=== PATIENT | female | born 1970 | race African-American/Black ===

== ENCOUNTER 2018-12-31 15:46 | Emergency (ER) | payer MEDICARE, MEDICAID ==
[~2018-12-31] VITALS: Ht 165.1 cm; Wt 72.6 kg
[~2018-12-31 15:46] MED LIST: GABA-689 PO; LURA40TA PO
[2018-12-31 16:07] LABS: BILIRUBIN,URINE NEGATIVE (NEG); CLARITY,URINE CLEAR; COLOR,URINE YELLOW; NITRITE,URINE NEGATIVE (NEG); PH,URINE 6.5; PROTEIN,URINE NEGATIVE (NEG-TRACE); UROBILINOGEN,URINE 0.2 mg/dL (0.2 mg/dL)
[2018-12-31 16:11] LABS: BARBITURATES NEG (NEG); BENZODIAZEPINES NEG (NEG); CANNABINOIDS POS (NEG); COCAINE NEG (NEG); METHADONE NEG (NEG); OPIATES NEG (NEG); PHENCYCLIDINE POS (NEG)
[2018-12-31 16:12] LABS: AMPHETAMINE/METHAMPHETAMINE NEG (NEG)
--- NOTE | 2018-12-31 16:12 | PHYS DOC ---
Past Medical History Past Medical History: Arthritis, Bipolar, Diabetes-Type II, Hypertension, Schizophrenia, Other Additional Past Medical Histor: neurontin, paranoid schizophrenia (LEWIS WALL APRN) Past Surgical History: Hysterectomy, Tubal ligation, Other Additional Past Surgical Histo: gall stones removed (LEWIS WALL APRN) Alcohol Use: Occasionally Drug Use: Cocaine, Marijuana (LEWIS WALL APRN) Attending Signature I have participated in the care of this patient and I have reviewed and agree with all pertinent clinical information above including history, exam, and recommendations. (RACHEL DANIELS MD) Adult General Chief Complaint Chief Complaint: SUICDAL IDEATION HPI HPI Patient is a 48 year old female with history of bipolar, schizophrenia, diabetes type 2, hypertension who presents to the ED today to be evaluated for suicidal or homicidal ideations. Patient reports she has not been taking her psych medicines for 9 months because she believes somebody is trying to poison her through the medicines. She is complaining of generalized pain throughout her body. She is very tearful. She states she has suicidal thoughts including killing herself by self-mutilation using knives she has at home. She also reports she wishes to kill her 3 sisters. She reports she will use the same kn [place] to kill her sisters. She was placed on 1:1 on arrival to the ED (LEWIS WALL APRN) Review of Systems Review of Systems Constitutional: Reports pain throughout her body. Denies fever or chills [] Eyes: Denies change in visual acuity, redness, or eye pain [] HENT: Denies nasal congestion or sore throat [] Respiratory: Denies cough or shortness of breath [] Cardiovascular: No additional information not addressed in HPI [] GI: Denies abdominal pain, nausea, vomiting, bloody stools or diarrhea [] : Denies dysuria or hematuria [] Musculoskeletal: Denies back pain or joint pain [] Integument: Denies rash or skin lesions [] Neurologic: Denies headache, focal weakness or sensory changes [] Psych: Reports suicidal and homicidal ideations All other systems were reviewed and found to be within normal limits, except as documented in this note. (LEWIS WALL APRN) Current Medications Current Medications Current Medications Medications (Trade) Dose Ordered Sig/Hero Start Time Stop Time Status Last Admin Dose Admin Acetaminophen (Tylenol) 1,000 mg 1X ONCE 01/01/19 01:00 01/01/19 01:01 DC 01/01/19 00:25 1,000 MG Clonidine HCl (Catapres) 0.2 mg 1X ONCE 12/31/18 21:30 12/31/18 21:31 DC 12/31/18 21:21 0.2 MG Potassium Chloride (Klor-Con) 40 meq 1X ONCE 12/31/18 21:30 12/31/18 21:31 DC 12/31/18 21:21 40 MEQ (RACHEL DANIELS MD) Allergies Allergies Allergies Coded Allergies Type Severity Reaction Last Updated Verified No Known Drug Allergies 03/25/13 No (RACHEL DANIELS MD) Physical Exam Physical Exam Constitutional: Well developed, well nourished, no acute distress, non-toxic appearance. [] HENT: Normocephalic, atraumatic, bilateral external ears normal, oropharynx moist, no oral exudates, nose normal. [] Eyes: PERRLA, EOMI, conjunctiva normal, no discharge. [] Neck: Normal range of motion, no tenderness, supple, no stridor. [] Cardiovascular:Heart rate regular rhythm, no murmur [] Lungs & Thorax: Bilateral breath sounds clear to auscultation [] Abdomen: Bowel sounds normal, soft, no tenderness, no masses, no pulsatile masses. [] Skin: Warm, dry, no erythema, no rash. [] Back: No tenderness, no CVA tenderness. [] Extremities: No tenderness, no cyanosis, no clubbing, ROM intact, no edema. [] Neurologic: Alert and oriented X 3, normal motor function, normal sensory function, no focal deficits noted. [] Psychologic: flat affect, appears sad, tearfull, talkative. (HONGUNGALEWIS APRN) Current Patient Data Vital Signs Vital Signs Date Time Temp Pulse Resp B/P (MAP) Pulse Ox O2 Delivery O2 Flow Rate FiO2 01/01/19 02:11 76 17 138/86 (103) 99 Room Air 12/31/18 15:57 98.3 98.3 (RACHEL DANIELS MD) Lab Values Laboratory Tests Test 12/31/18 15:50 12/31/18 16:10 Urine Collection Type Unknown Urine Color Yellow Urine Clarity Clear Urine pH 6.5 Urine Specific [place] <=1.005 Urine Protein Negative mg/dL (NEG-TRACE) Urine Glucose (UA) Negative mg/dL (NEG) Urine Ketones (Stick) Negative mg/dL (NEG) Urine Blood Trace (NEG) Urine Nitrite Negative (NEG) Urine Bilirubin Negative (NEG) Urine Urobilinogen Dipstick 0.2 mg/dL (0.2 mg/dL) Urine Leukocyte Esterase Negative (NEG) Urine RBC Occ /HPF (0-2) Urine WBC Occ /HPF (0-4) Urine Squamous Epithelial Cells Few /LPF Urine Bacteria 0 /HPF (0-FEW) Urine Test Negative (NEG) Urine Opiates Screen Neg (NEG) Urine Methadone Screen Neg (NEG) Urine Barbiturates Neg (NEG) Urine Phencyclidine Screen Pos (NEG) Urine Amphetamine/Methamphetamine Neg (NEG) Urine Benzodiazepines Screen Neg (NEG) Urine Cocaine Screen Neg (NEG) Urine Cannabinoids Screen Pos (NEG) Urine Ethyl Alcohol Neg (NEG) White Blood Count 10.2 x10^3/uL (4.0-11.0) Red Blood Count 4.68 x10^6/uL (3.50-5.40) Hemoglobin 13.2 g/dL (12.0-15.5) Hematocrit 40.3 % (36.0-47.0) Mean Corpuscular Volume 86 fL (79-100) Mean Corpuscular Hemoglobin 28 pg (25-35) Mean Corpuscular Hemoglobin Concent 33 g/dL (31-37) Red Cell Distribution Width 14.0 % (11.5-14.5) Platelet Count 263 x10^3/uL (140-400) Neutrophils (%) (Auto) 50 % (31-73) Lymphocytes (%) (Auto) 43 % (24-48) Monocytes (%) (Auto) 5 % (0-9) Eosinophils (%) (Auto) 1 % (0-3) Basophils (%) (Auto) 1 % (0-3) Neutrophils # (Auto) 5.1 x10^3/uL (1.8-7.7) Lymphocytes # (Auto) 4.4 x10^3/uL (1.0-4.8) Monocytes # (Auto) 0.5 x10^3/uL (0.0-1.1) Eosinophils # (Auto) 0.0 x10^3/uL (0.0-0.7) Basophils # (Auto) 0.1 x10^3/uL (0.0-0.2) Sodium Level 145 mmol/L (136-145) Potassium Level 3.4 mmol/L (3.5-5.1) L Chloride Level 106 mmol/L (98-107) Carbon Dioxide Level 26 mmol/L (21-32) Anion Gap 13 (6-14) Blood Urea Nitrogen 6 mg/dL (7-20) L Creatinine 0.8 mg/dL (0.6-1.0) Estimated GFR (Cockcroft-Gault) 91.9 BUN/Creatinine Ratio 8 (6-20) Glucose Level 93 mg/dL (70-99) Calcium Level 9.4 mg/dL (8.5-10.1) Total Bilirubin 0.2 mg/dL (0.2-1.0) Aspartate Amino Transferase (AST) 16 U/L (15-37) Alanine Aminotransferase (ALT) 15 U/L (14-59) Alkaline Phosphatase 90 U/L (46-116) Total Protein 7.3 g/dL (6.4-8.2) Albumin 3.7 g/dL (3.4-5.0) Albumin/Globulin Ratio 1.0 (1.0-1.7) Lipase 114 U/L (73-393) Salicylates Level 4.8 mg/dL (2.8-20.0) Salicylate Last Dose Date Unk Salicylate Last Dose Time Unk Acetaminophen Level < 2 mcg/ml (10-30) L Acetaminophen Last Dose Date Unk Acetaminophen Last Dose Time Unk Ethyl Alcohol Level < 10 mg/dL (0-10) Laboratory Tests 12/31/18 16:10 Laboratory Tests 12/31/18 16:10 (RACHEL DANIELS MD) Lab Values Laboratory Tests Test 12/31/18 15:50 12/31/18 16:10 Urine Collection Type Unknown Urine Color Yellow Urine Clarity Clear Urine pH 6.5 Urine Specific [place] <=1.005 Urine Protein Negative mg/dL (NEG-TRACE) Urine Glucose (UA) Negative mg/dL (NEG) Urine Ketones (Stick) Negative mg/dL (NEG) Urine Blood Trace (NEG) Urine Nitrite Negative (NEG) Urine Bilirubin Negative (NEG) Urine Urobilinogen Dipstick 0.2 mg/dL (0.2 mg/dL) Urine Leukocyte Esterase Negative (NEG) Urine RBC Occ /HPF (0-2) Urine WBC Occ /HPF (0-4) Urine Squamous Epithelial Cells Few /LPF Urine Bacteria 0 /HPF (0-FEW) Urine Test Negative (NEG) Urine Opiates Screen Neg (NEG) Urine Methadone Screen Neg (NEG) Urine Barbiturates Neg (NEG) Urine Phencyclidine Screen Pos (NEG) Urine Amphetamine/Methamphetamine Neg (NEG) Urine Benzodiazepines Screen Neg (NEG) Urine Cocaine Screen Neg (NEG) Urine Cannabinoids Screen Pos (NEG) Urine Ethyl Alcohol Neg (NEG) White Blood Count 10.2 x10^3/uL (4.0-11.0) Red Blood Count 4.68 x10^6/uL (3.50-5.40) Hemoglobin 13.2 g/dL (12.0-15.5) Hematocrit 40.3 % (36.0-47.0) Mean Corpuscular Volume 86 fL (79-100) Mean Corpuscular Hemoglobin 28 pg (25-35) Mean Corpuscular Hemoglobin Concent 33 g/dL (31-37) Red Cell Distribution Width 14.0 % (11.5-14.5) Platelet Count 263 x10^3/uL (140-400) Neutrophils (%) (Auto) 50 % (31-73) Lymphocytes (%) (Auto) 43 % (24-48) Monocytes (%) (Auto) 5 % (0-9) Eosinophils (%) (Auto) 1 % (0-3) Basophils (%) (Auto) 1 % (0-3) Neutrophils # (Auto) 5.1 x10^3/uL (1.8-7.7) Lymphocytes # (Auto) 4.4 x10^3/uL (1.0-4.8) Monocytes # (Auto) 0.5 x10^3/uL (0.0-1.1) Eosinophils # (Auto) 0.0 x10^3/uL (0.0-0.7) Basophils # (Auto) 0.1 x10^3/uL (0.0-0.2) Sodium Level 145 mmol/L (136-145) Potassium Level 3.4 mmol/L (3.5-5.1) L Chloride Level 106 mmol/L (98-107) Carbon Dioxide Level 26 mmol/L (21-32) Anion Gap 13 (6-14) Blood Urea Nitrogen 6 mg/dL (7-20) L Creatinine 0.8 mg/dL (0.6-1.0) Estimated GFR (Cockcroft-Gault) 91.9 BUN/Creatinine Ratio 8 (6-20) Glucose Level 93 mg/dL (70-99) Calcium Level 9.4 mg/dL (8.5-10.1) Total Bilirubin 0.2 mg/dL (0.2-1.0) Aspartate Amino Transferase (AST) 16 U/L (15-37) Alanine Aminotransferase (ALT) 15 U/L (14-59) Alkaline Phosphatase 90 U/L (46-116) Total Protein 7.3 g/dL (6.4-8.2) Albumin 3.7 g/dL (3.4-5.0) Albumin/Globulin Ratio 1.0 (1.0-1.7) Lipase 114 U/L (73-393) Salicylates Level 4.8 mg/dL (2.8-20.0) Salicylate Last Dose Date Unk Salicylate Last Dose Time Unk Acetaminophen Level < 2 mcg/ml (10-30) L Acetaminophen Last Dose Date Unk Acetaminophen Last Dose Time Unk Ethyl Alcohol Level < 10 mg/dL (0-10) Laboratory Tests 12/31/18 16:10 Laboratory Tests 12/31/18 16:10 (LEWIS WALL APRN) EKG EKG [] (LEWIS WALL APRN) Radiology/Procedures Radiology/Procedures [] (LEWIS WALL APRN) Course & Med Decision Making Course & Med Decision Making Pertinent Labs and Imaging studies reviewed. (See chart for details) This is a 48-year-old female patient with history of schizophrenia, bipolar, who presents to the ED today complaining of suicidal and homicidal ideations. See history of present illness. She was placed on 1:1 care on arrival to the ED. PAT team was consulted right away. CBC, CMP, Lipase are negative. UA negative Drug screen noted for PCP and marijuana Awaiting PAT Arabella to come and talk to patient. Arabella evaluated patient she is still waiting for a facility to accept her Patient accepted at [facility], awaiting EMS transportation. (LEWIS WALL APRN) [place] Disclaimer Dragon Disclaimer This electronic medical record was generated, in whole or in part, using a voice recognition dictation system. (LEWIS WALL APRN) Departure Departure Impression: Primary Impression: Schizophrenia Additional Impressions: Suicidal ideations Homicidal ideations Disposition: 05 TRANSFER OTHER Condition: STABLE Referrals: NO PCP (PCP) Problem Qualifiers Primary Impression: Schizophrenia Schizophrenia type: unspecified Qualified Codes: F20.9 - Schizophrenia, unspecified LEWIS WALL APRN Dec 31, 2018 16:12 RACHEL DANIELS MD Jan 01, 2019 04:31
[2018-12-31 16:14] LABS: BACTERIA,URINE 0 /HPF (0-FEW); WBC,URINE OCC /HPF (0-4)
[2018-12-31 16:15] LABS: RBC,URINE OCC /HPF (0-2); SQUAMOUS EPITHELIAL CELL,UR FEW /LPF
[2018-12-31 16:19] LABS: BASO # 0.1 x10^3/uL (0.0-0.2); BASO % 1 % (0-3); EOS % 1 % (0-3); HEMATOCRIT 40.3 % (36.0-47.0); HEMOGLOBIN 13.2 g/dL (12.0-15.5); LYMPH # 4.4 x10^3/uL (1.0-4.8); LYMPH % 43 % (24-48); MEAN CORPUSCULAR HEMOGLOBIN 28 pg (25-35); MEAN CORPUSCULAR HGB CONC 33 g/dL (31-37); MEAN CORPUSCULAR VOLUME 86 fL (79-100); MONO # 0.5 x10^3/uL (0.0-1.1); MONO % 5 % (0-9); NEUT # 5.1 x10^3/uL (1.8-7.7); NEUT % 50 % (31-73); PLATELET COUNT 263 x10^3/uL (140-400); RED BLOOD COUNT 4.68 x10^6/uL (3.50-5.40); WHITE BLOOD COUNT 10.2 x10^3/uL (4.0-11.0)
[2018-12-31 16:33] LABS: CALCIUM 9.4 mg/dL (8.5-10.1); CREATININE 0.8 mg/dL (0.6-1.0); GFR 91.9; POTASSIUM 3.4 mmol/L (3.5-5.1)
[2018-12-31 16:35] LABS: ALBUMIN 3.7 g/dL (3.4-5.0); TOTAL BILIRUBIN 0.2 mg/dL (0.2-1.0); TOTAL PROTEIN 7.3 g/dL (6.4-8.2)
[2018-12-31 16:37] LABS: SALIC 4.8 mg/dL (2.8-20.0)
[2018-12-31 16:38] LABS: ACETAMIN < 2 mcg/ml (10-30); ETHANOL < 10 mg/dL (0-10)
[2018-12-31] MEDS ORDERED: ACETAMINOPHEN 500 MG TABLET PO ONE (19:00)
[2018-12-31 20:01] LABS: U PREG PATIENT NEGATIVE (NEG)
[2018-12-31] MEDS ORDERED: POTASSIUM CHLORIDE 20 MEQ TABLET.ER. PO ONE (21:30)
[2018-12-31] MEDS ORDERED: cloNIDine HCL 0.1 MG TABLET PO ONE (21:30)
[2019-01-01] MEDS ORDERED: ACETAMINOPHEN 500 MG TABLET PO ONE (01:00)
[2019-01-01 02:11] VITALS: BP 138/86
== END 2019-01-01 02:25 | disposition short-term general hospital (02) ==
LOC: ER 15:46
DX: F20.9 Schizophrenia, unspecified (principal); F31.9 Bipolar disorder, unspecified; M19.90 Unspecified osteoarthritis, unspecified site; E11.9 Type 2 diabetes mellitus without complications; I10 Essential (primary) hypertension
CPT/HCPCS: 36415; 80053; 80307; 80329; 81001; 81025; 83690; 85025; 99285; G0480

== ENCOUNTER 2021-05-16 10:59 | Emergency (ER) | payer MEDICAID, MEDICARE ==
[~2021-05-16] VITALS: Ht 165.1 cm; Wt 63.4 kg
[~2021-05-16 10:59] MED LIST changes: -LURA40TA PO; +LURA40TA2 PO
[2021-05-16] MEDS ORDERED: LIDO:MAALOX 1:1 20 ML SINGLE DOSE. SWSW ONE (11:15)
[2021-05-16] MEDS ORDERED: fentaNYL PF VIAL 100 MCG/2 ML VIAL IVP ONE (11:15)
[2021-05-16] MEDS ORDERED: IV NORMAL SALINE 1000ML BAG 1,000 ML IV ONE (11:15)
[2021-05-16] MEDS ORDERED: PANTOPRAZOLE IV PUSH 40 MG VIAL. IVP ONE (11:15)
[2021-05-16] MEDS ORDERED: ONDANSETRON PF 4 MG/2 ML VIAL. IVP ONE (11:15)
--- NOTE | 2021-05-16 11:48 | PHYS DOC ---
Past Medical History Past Medical History: Arthritis, Bipolar, Diabetes-Type II, Hypertension, Schizophrenia, Other Additional Past Medical Histor: neurontin, paranoid schizophrenia, fibromyalgia, RA Past Surgical History: Cholecystectomy, Hysterectomy, Tubal ligation, Other Additional Past Surgical Histo: gall stones removed Smoking Status: Current Every Day Smoker Alcohol Use: Occasionally Drug Use: Cocaine, Marijuana Adult General Chief Complaint Chief Complaint: ABDOMINAL PAIN HPI HPI Patient is a 50 year old female presenting to emergency department for evaluation of abdominal pain that has been going on for approximate 1 week. She says is epigastric burning and gnawing and is constant for the most part. She says she has been diagnosed with an ulcer before in the past and has been taking ibuprofen for pain. Patient says she does not take any acid blockers such as Protonix or Prilosec she says she has had multiple episodes of nonbloody nonbilious emesis. She denies any fevers chills diarrhea constipation dysuria hematuria vaginal bleeding or vaginal discharge. She says she has had a cholecystectomy and an appendectomy . She appears uncomfortable but is nontoxic with normal vital signs. Review of Systems Review of Systems Constitutional: Denies fever or chills [] Eyes: Denies change in visual acuity, redness, or eye pain [] HENT: Denies nasal congestion or sore throat [] Respiratory: Denies cough or shortness of breath [] Cardiovascular: No additional information not addressed in HPI [] GI: + abdominal pain, nausea, vomiting. No bloody stools or diarrhea [] : Denies dysuria or hematuria [] Musculoskeletal: Denies back pain or joint pain [] Integument: Denies rash or skin lesions [] Neurologic: Denies headache, focal weakness or sensory changes [] All other systems were reviewed and found to be within normal limits, except as documented in this note. Current Medications Current Medications Current Medications Medications (Trade) Dose Ordered Sig/Hero Start Time Stop Time Status Last Admin Dose Admin Fentanyl Citrate (Fentanyl 2ml Vial) 50 mcg 1X ONCE 05/16/21 11:15 05/16/21 11:16 DC 05/16/21 12:11 50 MCG Info (CONTRAST GIVEN -- Rx MONITORING) 1 each PRN DAILY PRN 05/16/21 12:30 05/18/21 12:29 Iohexol (Omnipaque 300 Mg/ml) 75 ml 1X ONCE 05/16/21 12:30 05/16/21 12:34 DC 05/16/21 12:28 75 ML Multi-Ingredient Mouthwash/Gargle (Gi Cocktail) 20 ml 1X ONCE 05/16/21 11:15 05/16/21 11:16 DC 05/16/21 12:11 20 ML Ondansetron HCl (Zofran) 4 mg 1X ONCE 05/16/21 11:15 05/16/21 11:16 DC 05/16/21 12:10 4 MG Pantoprazole Sodium (PROTONIX VIAL for IV PUSH) 40 mg 1X ONCE 05/16/21 11:15 05/16/21 11:16 DC 05/16/21 12:11 40 MG Potassium Chloride (Klor-Con) 40 meq 1X ONCE 05/16/21 12:30 05/16/21 12:34 DC 05/16/21 12:44 40 MEQ Sodium Chloride 1,000 ml @ 1,000 mls/hr 1X ONCE 05/16/21 11:15 05/16/21 12:14 DC 05/16/21 12:10 1,000 MLS/HR Allergies Allergies Allergies Coded Allergies Type Severity Reaction Last Updated Verified No Known Drug Allergies 03/25/13 No Physical Exam Physical Exam Constitutional: Well developed, well nourished, no acute distress, non-toxic appearance. [] HENT: Normocephalic, atraumatic, bilateral external ears normal, oropharynx moist, no oral exudates, nose normal. [] Eyes: PERRLA, EOMI, conjunctiva normal, no discharge. [] Neck: Normal range of motion, no tenderness, supple, no stridor. [] Cardiovascular:Heart rate regular rhythm, no murmur [] Lungs & Thorax: Bilateral breath sounds clear to auscultation [] Abdomen: Bowel sounds normal, soft, positive epigastric tenderness to palpation with no rebound or guarding. Skin: Warm, dry, no erythema, no rash. [] Back: No tenderness, no CVA tenderness. [] Extremities: No tenderness, no cyanosis, no clubbing, ROM intact, no edema. [] Neurologic: Alert and oriented X 3, normal motor function, normal sensory function, no focal deficits noted. [] Current Patient Data Vital Signs Vital Signs Date Time Temp Pulse Resp B/P (MAP) Pulse Ox O2 Delivery O2 Flow Rate FiO2 05/16/21 12:41 19 100 Room Air 05/16/21 12:16 72 170/95 (120) 05/16/21 11:04 98.2 98.2 Lab Values Laboratory Tests Test 05/16/21 11:40 05/16/21 11:48 Urine Collection Type Void Urine Color (Auto) Light yellow Urine Turbidity Clear Urine pH (Auto) 6.0 (<5.0-8.0) Urine Specific [place] 1.011 (1.000-1.030) Urine Protein (Auto) Negative mg/dL (Negative) Urine Glucose (Auto)(UA) Negative mg/dL (Negative) Urine Ketones (Auto) Negative mg/dL (Negative) Urine Blood (Auto) Trace (Negative) Urine Nitrite Negative (Negative) Urine Bilirubin (Auto) Negative (Negative) Urine Urobilinogen (Auto) Normal mg/dL (Normal) Urine Leukocyte Esterase (Auto) Negative (Negative) Urine RBC 3-5 /HPF (0-2) Urine WBC 1-4 /HPF (0-4) Urine Squamous Epithelial Cells Few /LPF Urine Bacteria 0 /HPF (0-FEW) Urine Mucus Mod /LPF White Blood Count 7.6 x10^3/uL (4.0-11.0) Red Blood Count 5.09 x10^6/uL (3.50-5.40) Hemoglobin 14.4 g/dL (12.0-15.5) Hematocrit 44.3 % (36.0-47.0) Mean Corpuscular Volume 87 fL (79-100) Mean Corpuscular Hemoglobin 28 pg (25-35) Mean Corpuscular Hemoglobin Concent 33 g/dL (31-37) Red Cell Distribution Width 13.8 % (11.5-14.5) Platelet Count 236 x10^3/uL (140-400) Neutrophils (%) (Auto) 58 % (31-73) Lymphocytes (%) (Auto) 34 % (24-48) Monocytes (%) (Auto) 6 % (0-9) Eosinophils (%) (Auto) 1 % (0-3) Basophils (%) (Auto) 1 % (0-3) Neutrophils # (Auto) 4.4 x10^3/uL (1.8-7.7) Lymphocytes # (Auto) 2.6 x10^3/uL (1.0-4.8) Monocytes # (Auto) 0.4 x10^3/uL (0.0-1.1) Eosinophils # (Auto) 0.1 x10^3/uL (0.0-0.7) Basophils # (Auto) 0.1 x10^3/uL (0.0-0.2) Sodium Level 144 mmol/L (136-145) Potassium Level 3.1 mmol/L (3.5-5.1) L Chloride Level 104 mmol/L (98-107) Carbon Dioxide Level 30 mmol/L (21-32) Anion Gap 10 (6-14) Blood Urea Nitrogen 6 mg/dL (7-20) L Creatinine 0.8 mg/dL (0.6-1.0) Estimated GFR (Cockcroft-Gault) 91.1 BUN/Creatinine Ratio 8 (6-20) Glucose Level 86 mg/dL (70-99) Calcium Level 9.3 mg/dL (8.5-10.1) Total Bilirubin 0.4 mg/dL (0.2-1.0) Aspartate Amino Transferase (AST) 12 U/L (15-37) L Alanine Aminotransferase (ALT) 13 U/L (14-59) L Alkaline Phosphatase 87 U/L (46-116) Troponin I High Sensitivity 5 ng/L (4-50) Total Protein 7.8 g/dL (6.4-8.2) Albumin 4.0 g/dL (3.4-5.0) Albumin/Globulin Ratio 1.1 (1.0-1.7) Lipase 72 U/L (73-393) L Laboratory Tests 05/16/21 11:48 Laboratory Tests 05/16/21 11:48 EKG EKG Sinus rhythm at 70 bpm with normal axis no deviation no ST elevation or depres marleny and normal T waves and normal intervals. Radiology/Procedures Radiology/Procedures [] Course & Med Decision Making Course & Med Decision Making I will check labs and imaging treat symptoms and reassess. Thankfully work-up came back negative for acute process. She does have mildly decreased potassium and she was given oral potassium and she held down fluids and potassium pills with no difficulty. Her pain improved significantly and she had no focal tenderness rebound or guarding on repeat exam. Patient was feeling much better and asking to go home so I will discharge her in stable condition. She will be prescribed Prilosec Zortman and Zofran and told to follow with primary care provider and GI and come back to emergency department sooner with worsening pain fevers vomiting or other general concerns. Patient aware an d agreeable with plan and verbalized understanding of the above instructions. Dragon Disclaimer Dragon Disclaimer This electronic medical record was generated, in whole or in part, using a voice recognition dictation system. Departure Departure Impression: Primary Impression: Abdominal pain Additional Impressions: Nausea & vomiting Hypokalemia Disposition: HOME / SELF CARE / HOMELESS Condition: STABLE Referrals: OPAL SILVA MD Patient Instructions: Abdominal Pain (Nonspecific) Scripts Omeprazole Magnesium (PRILOSEC OTC) 20 Mg Tablet.dr 40 MG PO DAILY for 30 Days, #60 TAB Prov: ALIZA SAINI DO 05/16/21 Ondansetron (ONDANSETRON ODT) 4 Mg Tab.rapdis 1 TAB PO PRN Q6-8HRS, #16 TAB Prov: ALIZA SAINI DO 05/16/21 Hydrocodone Bit/Acetaminophen (HYDROCODONE-APAP 5-325 ) 1 Tab Tablet 1 TAB PO PRN Q6HRS PRN for PAIN, #10 TAB 0 Refills Prov: ALIZA SAINI DO 05/16/21 Problem Qualifiers Primary Impression: Abdominal pain Abdominal location: epigastric Qualified Codes: R10.13 - Epigastric pain ALIZA SAINI DO May 16, 2021 11:48
[2021-05-16 11:59] LABS: BASO # 0.1 x10^3/uL (0.0-0.2); BASO % 1 % (0-3); EOS # 0.1 x10^3/uL (0.0-0.7); EOS % 1 % (0-3); HEMATOCRIT 44.3 % (36.0-47.0); HEMOGLOBIN 14.4 g/dL (12.0-15.5); LYMPH # 2.6 x10^3/uL (1.0-4.8); LYMPH % 34 % (24-48); MEAN CORPUSCULAR HEMOGLOBIN 28 pg (25-35); MEAN CORPUSCULAR HGB CONC 33 g/dL (31-37); MEAN CORPUSCULAR VOLUME 87 fL (79-100); MONO # 0.4 x10^3/uL (0.0-1.1); MONO % 6 % (0-9); NEUT # 4.4 x10^3/uL (1.8-7.7); NEUT % 58 % (31-73); PLATELET COUNT 236 x10^3/uL (140-400); RED BLOOD COUNT 5.09 x10^6/uL (3.50-5.40); RED CELL DISTRIBUTION WIDTH 13.8 % (11.5-14.5); WHITE BLOOD COUNT 7.6 x10^3/uL (4.0-11.0)
[2021-05-16 12:13] LABS: CALCIUM 9.3 mg/dL (8.5-10.1); CREATININE 0.8 mg/dL (0.6-1.0); GFR 91.1; POTASSIUM 3.1 mmol/L (3.5-5.1)
--- NOTE | 2021-05-16 12:13 | EKG ---
[facility] [address] [place] [address] Test Date: 2021-05-16 Test Time: 11:34:10 Pat Name: DONALD HAIRSTON Department: Room: Gender: F Overlocker: : 1970 Requested By: ALIZA SAINI Order Number: [id number] Reading MD: Thien Fleming Measurements Intervals [place] Rate: 70 P: 62 [place]: 148 QRS: 52 QRSD: 88 T: 41 QT: 410 QTc: 446 Interpretive Statements SINUS RHYTHM NORMAL ECG Electronically Signed On 05-24-2021 14:22:03 CDT by Thien Fleming
[2021-05-16 12:19] LABS: ALBUMIN/GLOBULIN RATIO 1.1 (1.0-1.7); TOTAL BILIRUBIN 0.4 mg/dL (0.2-1.0); TOTAL PROTEIN 7.8 g/dL (6.4-8.2)
[2021-05-16 12:25] LABS: BACTERIA,URINE 0 /HPF (0-FEW)
[2021-05-16] MEDS ORDERED: POTASSIUM CHLORIDE 20 MEQ TABLET.ER. PO ONE (12:30)
[2021-05-16] MEDS ORDERED: CONTRAST GIVEN. MC PRN (12:30)
[2021-05-16] MEDS ORDERED: IOHEXOL 300 MG/ML 100ML VIAL. IV ONE (12:30)
--- NOTE | 2021-05-16 13:07 | RAD ---
Exam Date: 05/16/2021 12:[address] ABDOMEN+PELVIS W Indication: Reason: epigastric abd pain / Spl. Instructions: OMNI 300 INJ. 75 MLS / History: . TECHNIQUE: CT examination of the abdomen and pelvis was performed following the administration of no nionic intravenous contrast. One or more of the following dose reduction techniques were utilized: *Automated exposure control (AEC) *Adjustment of mA and/or kV according to patient size *Use of iterative reconstruction technique *CT scan done according to ALARA, or ALARA/IMAGE GENTLY FINDINGS: The visualized lung bases are clear. Status post cholecystectomy. There are bilateral renal cysts. The liver, spleen, pancreas, adrenal glands and kidneys are otherwise normal. Urinary bladder is normal in appearance. There is no bowel obstruction or inflammation. The appendix is normal. No significant atherosclerotic calcifications are seen. No lymphadenopathy or ascites is seen. Degenerative changes are seen in the spine. IMPRESSION: No evidence of acute intra-abdominal pathology. Electronically signed by: Man Calle MD (05/16/2021 1:05 PM) [facility]
[2021-05-16 13:46] VITALS: BP 184/83
[2021-05-16] MEDS ORDERED: OMEP20TA63 PO (13:51)
[2021-05-16] MEDS ORDERED: HYDR-2761 PO (13:51)
[2021-05-16] MEDS ORDERED: ONDA4TAB12 PO (13:51)
== END 2021-05-16 14:29 | disposition home or self-care (01) ==
LOC: ER 10:59
DX: R10.13 Epigastric pain (principal); R11.2 Nausea with vomiting, unspecified; E87.6 Hypokalemia; F31.9 Bipolar disorder, unspecified; E11.9 Type 2 diabetes mellitus without complications; I10 Essential (primary) hypertension; F20.0 Paranoid schizophrenia; M06.9 Rheumatoid arthritis, unspecified; F17.200 Nicotine dependence, unspecified, uncomplicated; Z90.49 Acquired absence of other specified parts of digestive tract; Z90.710 Acquired absence of both cervix and uterus; Z98.51 Tubal ligation status
CPT/HCPCS: 36415; 74177; 80053; 81001; 83690; 84484; 85025; 93005; 96361; 96374; 96375; 99285; C9113; J2405; J3010; J7030; Q9967

== ENCOUNTER 2021-05-24 08:56 | Emergency (ER) | payer MEDICARE ==
[~2021-05-24] VITALS: Ht 165.1 cm; Wt 62.6 kg
[~2021-05-24 08:56] MED LIST changes: +HYDR-2761 PO; +OMEP20TA63 PO; +ONDA4TAB12 PO
[2021-05-24 09:08] VITALS: BP 153/84
[2021-05-24] MEDS ORDERED: KETOROLAC 60 MG/2 ML VIAL. IM ONE (09:30)
--- NOTE | 2021-05-24 09:39 | PHYS DOC ---
Past Medical History Past Medical History: Arthritis, Bipolar, Diabetes-Type II, Hypertension, Schizophrenia, Other Additional Past Medical Histor: neurontin, paranoid schizophrenia, fibromyalgia, RA Past Surgical History: Cholecystectomy, Hysterectomy, Tubal ligation, Other Additional Past Surgical Histo: gall stones removed Smoking Status: Current Every Day Smoker Alcohol Use: Occasionally Drug Use: Cocaine, Marijuana General Adult EDM: Chief Complaint: LOWER BACK PAIN OR INJURY HPI: HPI: Patient is a 50 year old female who presents with patient was helping her sister get ready for physical therapy and they had her on a Litzy lift. She s tates that her sister weighs about 400 pounds. Patient states that she kept telling them that they needed to come out in give her the proper Litzy lift because the Litzy lifted too small. She states that they were raising her in the Litzy lift when the Litzy lift started to fall over due to sister's weight. She states that her sister landed on the back of her. Patient states that she fell to her knees. Patient is complaining of right-sided neck pain and left to mid lower back lumbar pain. Patient rates her pain 7 out of 10. She denies loss of bowel and bladder, focal weakness, numbness and tingling, hitting her head, syncope, dizziness, headache. Review of Systems: Review of Systems: Constitutional: Denies fever or chills. [] Eyes: Denies change in visual acuity. [] HENT: Denies nasal congestion or sore throat. [] Respiratory: Denies cough or shortness of breath. [] Cardiovascular: Denies chest pain or edema. [] GI: Denies abdominal pain, nausea, vomiting, bloody stools or diarrhea. [] : Denies dysuria. [] Musculoskeletal: + Lower back pain or denies joint pain. + Neck pain [] Integument: Denies rash. [] Neurologic: Denies headache, focal weakness or sensory changes. [] Endocrine: Denies polyuria or polydipsia. [] Lymphatic: Denies swollen glands. [] Psychiatric: Denies depression or anxiety. [] Heart Score: C/O Chest Pain: No Current Medications: Current Medications Medications (Trade) Dose Ordered Sig/Hero Start Time Stop Time Status Last Admin Dose Admin Ketorolac Tromethamine (Toradol Im) 60 mg 1X ONCE 05/24/21 09:30 05/24/21 09:31 DC Allergies: Allergies: Allergies Coded Allergies Type Severity Reaction Last Updated Verified No Known Drug Allergies 03/25/13 No Physical Exam: PE: Constitutional: Well developed, well nourished, no acute distress, non-toxic appearance. [] HENT: Normocephalic, atraumatic, bilateral external ears normal, oropharynx moist, no oral exudates, nose normal. [] Eyes: PERRLA, EOMI, conjunctiva normal, no discharge. [] Neck: Normal range of motion, no tenderness, supple, no stridor. [] Cardiovascular:Heart rate regular rhythm, no murmur [] Lungs & Thorax: Bilateral breath sounds clear to auscultation [] Abdomen: Bowel sounds normal, soft, no tenderness, no masses, no pulsatile masses. [] Skin: Warm, dry, no erythema, no rash. [] Back: No tenderness, no CVA tenderness. [] Extremities: No tenderness, no cyanosis, no clubbing, ROM intact, no edema. [] Neurologic: Alert and oriented X 3, normal motor function, normal sensory function, no focal deficits noted. [] Psychologic: Affect normal, judgement normal, mood normal. [] Normal physical exam Current Patient Data: Vital Signs: Vital Signs Date Time Temp Pulse Resp B/P (MAP) Pulse Ox O2 Delivery O2 Flow Rate FiO2 05/24/21 09:08 97.6 64 18 153/84 (107) 98 Room Air 97.6 EKG: EKG: [] Radiology/Procedures: Radiology/Procedures: [] Impression: [facility] [address] [place], [place] [id number] IMAGING REPORT Signed PATIENT: DONALD HAIRSTON DACCOUNT: [id number] : 1970 LOCATION: ER AGE: 50 SEX: F EXAM STATUS: REG ER ORD. PHYSICIAN: KIMO HERNÁNDEZ DETECTIVE SUPERVISOR REASON: 400lbs sister fell on her back PROCEDURE: CT CERVICAL SPINE WO CONTRAST CT CERVICAL SPINE WO History: 400lbs sister fell on her back. Pain. Comparison: None. Technique: Noncontrast CT of the cervical spine. Findings: There are 7 nonrib-bearing cervical vertebral segments. There is no evidence for acute fracture in the cervical spine. No destructive osseous lesions are seen. Left C3 pedicle enostosis. Alignment is normal. Disc spaces are preserved. Limited evaluation of the soft tissues of the neck and of the upper chest is unremarkable. Impression: 1. No acute findings in the cervical spine. ------- Exposure: One or more of the following individualized dose reduction techniques were utilized for this examination: 1. Automated exposure control 2. Adjustment of the mA and/or kV according to patient size 3. Use of iterative reconstruction technique. Electronically signed by: Lars Irving MD (05/24/2021 10:13 AM) [id number] DICTATED and SIGNED BY: LARS IRVING MD DATE: 05/24/21 1004 [facility] [address] [place] [address] IMAGING REPORT Signed PATIENT: DONALD HAIRSTON DACCOUNT: [id number] : 1970 LOCATION: ER AGE: 50 SEX: F EXAM STATUS: REG ER ORD. PHYSICIAN: KIMO HERNÁNDEZ APRN REASON: 400lbs sister fell on her back, pain PROCEDURE: CT LUMBAR SPINE WO CONTRAST CT LUMBAR SPINE WO History: Back pain after trauma. Technique: Noncontrast CT was performed of the lumbar spine. Multiplanar reconstructions were performed. Comparison: None Findings: Normal vertebral body height and alignment. No fracture. Mild multilevel degenerative disc and facet disease. The sacroiliac joints and sacrum are unremarkable. Partially visualized cholecystectomy clips. No acute findings in the visualized portions of the abdomen and pelvis. Soft tissues are unremarkable. Impression: 1. Mild degenerative changes without acute findings in the lumbar spine. Exposure: One or more of the following individualized dose reduction techniques were utilized for this examination: 1. Automated exposure control 2. Adjustment of the mA and/or kV according to patient size 3. Use of iterative reconstruction technique. Electronically signed by: Lars Irving MD (05/24/2021 10:21 AM) [id number] DICTATED and SIGNED BY: LARS IRVING MD DATE: 05/24/21 1013 Course & Med Decision Making: Course & Med Decision Making Pertinent Labs and Imaging studies reviewed. (See chart for details) See HPI. Alert and oriented x4. Ambulatory steady gait. Skin pink warm and dry. No focal bony spinal tenderness. No tenderness to the neck and there is full range of motion of the neck. No tenderness to her back or bruising. No signs of trauma. Speaks in full clear sentences. Moving all extremities equally over mental retardation aide and strengths. [] Dragon Disclaimer: Dragon Disclaimer: This electronic medical record was generated, in whole or in part, using a voice recognition dictation system. Departure Departure Impression: Primary Impression: Cervical muscle strain Qualified Codes: S16.1XXA - Strain of muscle, fascia and tendon at neck level, initial encounter Additional Impression: Low back strain Qualified Codes: S39.012A - Strain of muscle, fascia and tendon of lower back, initial encounter Disposition: HOME / SELF CARE / HOMELESS Condition: STABLE Referrals: NO PCP (PCP) Patient Instructions: Cervical Strain and Sprain with [facility], Low Back Strain with [facility] Additional Instructions: Follow up with primary care provider if needed. Take medications as prescribed and with food. Remember these medications can make you sleepy. Do not drink alcohol, work or drive if taking the medication. Scripts Ibuprofen (IBUPROFEN) 600 Mg Tablet 600 MG PO PRN Q6HRS PRN for INFLAMMATION, #30 TAB Prov: KIMO HERNÁNDEZ APRN 05/24/21 Cyclobenzaprine Hcl (CYCLOBENZAPRINE HCL) 5 Mg Tablet 1 TAB PO TID, #15 TAB Prov: KIMO HERNÁNDEZ APRN 05/24/21 KIMO HERNÁNDEZ APRN May 24, 2021 09:39
--- NOTE | 2021-05-24 10:15 | RAD ---
CT CERVICAL SPINE WO History: 400lbs sister fell on her back. Pain. Comparison: None. Technique: Noncontrast CT of the cervical spine. Findings: There are 7 nonrib-bearing cervical vertebral segments. There is no evidence for acute fracture in the cervical spine. No destructive osseous lesions are see n. Left C3 pedicle enostosis. Alignment is normal. Disc spaces are preserved. Limited evaluation of the soft tissues of the neck and of the upper chest is unremarkable. Impression: 1. No acute findings in the cervical spine. ------- Exposure: One or more of the following individualized dose reduction techniques were utilized for thi s examination: 1. Automated exposure control 2. Adjustment of the mA and/or kV according to patient size 3. Use of iterative reconstruction technique. Electronically signed by: Lars Ortega MD (05/24/2021 10:13 AM) [id number]
--- NOTE | 2021-05-24 10:23 | RAD ---
CT LUMBAR SPINE WO History: Back pain after trauma. Technique: Noncontrast CT was performed of the lumbar spine. Multiplanar reconstructions were perform ed. Comparison: None Findings: Normal vertebral body height and alignment. No fracture. Mild multilevel degenerative disc and facet disease. The sacroiliac joints and sacrum are unremarkabl e. Partially visualized cholecystectomy clips. No acute findings in the visualized portions of the abdom en and pelvis. Soft tissues are unremarkable. Impression: 1. Mild degenerative changes without acute findings in the lumbar spine. Exposure: One or more of the following individualized dose reduction techniques were utilized for thi s examination: 1. Automated exposure control 2. Adjustment of the mA and/or kV according to patient size 3. Use of iterative reconstruction technique. Electronically signed by: Lars Ortega MD (05/24/2021 10:21 AM) [id number]
[2021-05-24] MEDS ORDERED: IBUP-1007 PO (10:29)
[2021-05-24] MEDS ORDERED: CYCL5TAB PO (10:29)
== END 2021-05-24 10:40 | disposition home or self-care (01) ==
LOC: ER 08:56
DX: S16.1XXA Strain of muscle, fascia and tendon at neck level, initial encounter (principal); M19.90 Unspecified osteoarthritis, unspecified site; F31.9 Bipolar disorder, unspecified; E11.9 Type 2 diabetes mellitus without complications; I10 Essential (primary) hypertension; F20.9 Schizophrenia, unspecified; M79.7 Fibromyalgia; M06.9 Rheumatoid arthritis, unspecified; F17.200 Nicotine dependence, unspecified, uncomplicated; Z90.49 Acquired absence of other specified parts of digestive tract; Z90.710 Acquired absence of both cervix and uterus; Z98.51 Tubal ligation status; W51.XXXA Accidental striking against or bumped into by another person, initial encounter; Y93.89 Activity, other specified; Y92.89 Other specified places as the place of occurrence of the external cause; Y99.8 Other external cause status
CPT/HCPCS: 72125; 72131; 96372; 99284; J1885